=== PATIENT | female | born 1985 | race American Indian/Alaskan Native ===

== ENCOUNTER 2016-07-02 10:15 | Emergency (ER) | payer SELFPAY ==
[2016-07-02] MEDS ORDERED: NORCO 5/325 PO ONE (14:20)
--- NOTE | 2016-07-02 15:19 | XRay Report ---
LUMBOSACRAL SPINE, 3 VIEWS: History: Back pain Findings: The vertebral bodies, disk spaces and posterior elements are intact. No compression deformity or malalignment. The SI joints are symmetric and unremarkable. Impression: 1. No evidence for acute injury to the lumbar spine.
--- NOTE | 2016-07-02 16:01 | Emergency Department Report ---
Entered by LUIS KNOX, acting as scribe for STEPHANIE SELBY PA. ED Back Pain/Injury HPI - General Chief Complaint: Extremity Injury, Lower Stated Complaint: PAIN IN LEGS PAST 2 DAYS Source: patient Limitations: No Limitations - History of Present Illness Initial Comments: 30 year old female with a PMHx of Ulcerative colitis and chronic back pain presents to the ED c/o lower back pain that began 2 days ago. Patient states that she was not involved in any activity at the start of this episode. Rates pain 7/10 in severity and notes pain radiates to her left leg. She states her left leg pain feels like she's been "hit by a car". Pain worsens with walking, movement, sitting, and turning. Associated symptoms include frequent urination, minimal incontinence, numbness, and tingling, but denies any recent falls/trauma , SOB, nausea, vomiting, and diarrhea. She reports not being diagnosed with sciatica in the past. Reports taking Ibuprofen and aspirin with minimal relief. LMP 05/22/2016. Allergic to penicillins. Complaint: back pain (lower, denies any back injury/trauma) Onset/Timin -: days(s) Similar Symptoms Previously: Yes (Hx of back pain) Place: home Radiation: left leg Severity: moderate Severity scale (0 -10): 7 Quality: sharp, aching Consistency: constant Improves With: immobilization Worsens With: movement, walking, other (turning) Associated Symptoms: other (frequent urination, tingling) - Related Data Previous Rx's Medication Instructions Recorded Last Taken Type Naproxen [Naprosyn TAB] 500 mg PO BID PRN #25 tablet 07/02/16 Unknown Rx traMADol [Ultram 50 MG tab] 50 mg PO Q6HR PRN #10 tablet 07/02/16 Unknown Rx Allergies Allergy/AdvReac Type Severity Reaction Status Date / Time Penicillins Allergy Itching Verified 07/02/16 11:03 ED Review of Systems Comment: All other systems reviewed and negative Constitutional: other (tingling in inner groin region). denies: chills, fever Eyes: denies: eye pain, eye discharge, vision change ENT: denies: ear pain, throat pain Respiratory: denies: orthopnea, shortness of breath, SOB with exertion, SOB at rest Cardiovascular: denies: chest pain Endocrine: no symptoms reported Gastrointestinal: denies: nausea, vomiting, diarrhea Genitourinary: urgency, frequency, other Musculoskeletal: back pain (lower), other (left leg radiating pain from lower back, sharpness and tightness in left leg). denies: joint swelling Skin: denies: rash Neurological: numbness (inner groin region) Psychiatric: denies: anxiety, depression Hematological/Lymphatic: denies: easy bleeding, easy bruising ED Past Medical Hx - Past Medical History Previous Medical History?: Yes Additional medical history: Back pain - Surgical History Past Surgical History?: No - Medications Home Medications: Home Medications Medication Instructions Recorded Confirmed Last Taken Type Naproxen [Naprosyn TAB] 500 mg PO BID PRN #25 tablet 07/02/16 Unknown Rx traMADol [Ultram 50 MG tab] 50 mg PO Q6HR PRN #10 tablet 07/02/16 Unknown Rx ED Physical Exam - General Limitations: No Limitations General appearance: alert, in no apparent distress - Head Head exam: Present: atraumatic, normocephalic - Eye Eye exam: Present: normal appearance, PERRL, EOMI Pupils: Present: normal accommodation - ENT ENT exam: Present: normal exam, mucous membranes moist - Neck Neck exam: Present: normal inspection, full ROM. Absent: tenderness, lymphadenopathy - Respiratory Respiratory exam: Present: normal lung sounds bilaterally, respiratory distress. Absent: wheezes, rales, chest wall tenderness - Cardiovascular Cardiovascular Exam: Present: regular rate, normal rhythm. Absent: systolic murmur, diastolic murmur, rubs, gallop - GI/Abdominal GI/Abdominal exam: Present: soft. 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 Absent: mass, tenderness - Extremities Exam Extremities exam: Present: normal inspection, full ROM, tenderness (left leg sharpness and tightnesss), normal capillary refill - Back Exam Back exam: Present: normal inspection, full ROM, tenderness (lumbar). Absent: paraspinal tenderness, vertebral tenderness - Expanded Back Exam Expanded Back exam: Absent: saddle anesthesia Back exam: Positive Straight Leg Raise: Left (45 degree angle), Negative Straight Leg Raising: Right - Neurological Exam Neurological exam: Present: alert, oriented X3, CN II-XII intact, normal gait - Expanded Neurological Exam Expanded Patient oriented to: Present: person, place, time Speech: Present: fluid speech Upper motor neuron: Sensory Extinction: Normal Sensory exam: Upper Extremity Light Touch: Normal, Upper Extremity Pin Prick: Normal, Lower Extremity Light Touch: Normal, Lower Extremity Pin Prick: Normal Motor strength exam: RUE: 5, LUE: 5, RLE: 5 (plantar and dorsiflexion against gravity and against resistance fully intact to both feet), LLE: 5 DTR: bicep (R): 2+, bicep (L): 2+, tricep (R): 2+, tricep (L): 2+, knee (R): 2+ , knee (L): 2+, ankle (R): 2+, ankle (L): 2+ Best Eye Response ([place]): (4) open spontaneously Best Motor Response ([place]): (6) obeys commands Best Verbal Response ([place]): (5) oriented [place] Total: 15 - Psychiatric Psychiatric exam: Present: normal affect, normal mood - Skin Skin exam: Present: warm, dry, intact. Absent: rash, ecchymosis ED Course Vital Signs 07/02/16 10:57 Temperature 99.2 F Pulse Rate 92 H Respiratory 20 Rate Blood Pressure 111/74 Blood Pressure 111/74 [Right] O2 Sat by Pulse 100 Oximetry ED Medical Decision Making - Medical Decision Making A/P: Sciatica left leg 1- naproxen and tramadol PRN 2- pt has no clinical signs of cord compression, fully ambulatory, normal rectal tone on CONTR[place], LE motor strength 5/5 b/l, distal pulses fully intact DP, PT b/l. Patient has no clinical signs of cauda equina or severe cord compression. 3- Xray l-spine wnl 4- will refer to orthopedics, I advised pt that if pain persists she may need outpt MRI of lumbar spine, no clinical indication at this time for one 5- upreg neg, will send UA as patient complains of some increased urinary frequency. Patient was able to void urine and feces voluntarily while in the ED , fully ambulatory in the ED without assistance ED Disposition Clinical Impression: Sciatica Qualifiers: Laterality: left Qualified Code(s): M54.32 - Sciatica, left side Disposition: DISCHARGED TO HOME OR SELFCARE Is pt being admited?: No Does the pt Need Aspirin: No Condition: Stable Instructions: Sciatica (ED), Piriformis Syndrome (ED) Prescriptions: Naproxen [Naprosyn TAB] 500 mg PO BID PRN #25 tablet PRN Reason: Pain traMADol [Ultram 50 MG tab] 50 mg PO Q6HR PRN #10 tablet PRN Reason: Pain Referrals: TAYO CHINCHILLA MD [Staff Physician] - 3-5 Days HERMINIA MAR MD [Staff Physician] - 3-5 Days Forms: Accompanied Note, Work/School Release Form(ED) Time of Disposition: 15:58 This documentation as recorded by the LISETTE rubin JASMINE,accurately reflects the service I personally performed and the decisions made by ,STEPHANIE SELBY PA.
[2016-07-02 16:18] VITALS: BP 111/76
[2016-07-02 16:33] LABS: Bilirubin,Urine NEG (Negative); Blood,Urine SM (Negative); Ketones,Urine NEG (Negative); Leukocyte Esterase,Urine NEG (Negative); Mucus,Urine FEW /HPF; Nitrite,Urine NEG (Negative); Protein,Urine <15 mg/dL mg/dL (Negative); Urobilinogen,Urine < 2.0 mg/dL (<2.0)
== END 2016-07-02 15:59 | disposition home or self-care (01) ==
LOC: ED 10:15
DX: M54.32 Sciatica, left side (principal)
CPT/HCPCS: 72100; 81001; 81025; 99283